=== PATIENT | female | born 1985 | race Caucasian/White ===

== ENCOUNTER 2018-08-07 14:54 | Emergency (ER) | payer OTHER ==
[~2018-08-07] VITALS: Ht 165.1 cm; Wt 136.1 kg
[2018-08-07 15:04] VITALS: Ht 165.1 cm; Wt 136.1 kg
[2018-08-07 16:30] VITALS: BP 120/71
== END 2018-08-07 16:30 | disposition home or self-care (01) ==
LOC: ED 14:54
DX: S82.851A Displaced trimalleolar fracture of right lower leg, initial encounter for closed fracture (principal); W01.0XXA Fall on same level from slipping, tripping and stumbling without subsequent striking against object, initial encounter; Y93.89 Activity, other specified; Y92.89 Other specified places as the place of occurrence of the external cause; Y99.8 Other external cause status
CPT/HCPCS: J1885